=== PATIENT | male | born 1945 | race Caucasian/White ===

== ENCOUNTER → 2020-10-06 | Day surgery (SDC) | payer MEDICARE, OTHER ==
[~2020-10-06] MED LIST: ALLOPURINOL300 MG PO; COZAAR50 MG PO; FLOMAX 0.4 MG0.4 MG PO; HCTZ12.5 MG PO; LOPRESSOR50 MG PO; PROSCAR5 MG PO; VITAMIN D31250 MCG PO
[2020-10-06 08:05] LABS: HCT 49.2 % (42.0-52.0); HGB 17.6 g/dl (13.2-18.0); MCH 32.7 pg (25.0-31.0); MCHC 35.8 g/dL (32.0-36.0); MCV 91.3 fL (78.0-100.0); MPV 10.4 fL (6.0-9.5); RBC 5.39 M/uL (4.70-6.00); RDW 12.8 % (11.5-14.0); WBC 10.4 K/uL (4.0-10.5)
[2020-10-06 08:23] LABS: ALBUMIN 3.9 g/dL (3.4-5.0); BILIRUBIN - TOTAL 1.1 mg/dL (0.2-1.0); BUN/CREAT RATIO (CALC) 11.6 RATIO; CREATININE 0.86 mg/dL (0.67-1.17); POTASSIUM 3.5 mmol/L (3.5-5.1); TOTAL PROTEIN 7.9 g/dL (6.4-8.2)
== END | disposition home or self-care (01) ==
LOC: FAS 07:15
PROVIDERS: Surgery
DX: R19.7 Diarrhea, unspecified (principal); Z86.010 Personal history of colon polyps; Z87.891 Personal history of nicotine dependence; Z79.899 Other long term (current) drug therapy
CPT/HCPCS: 36415; 80053; 88305; J2250; J2704; J7120

== ENCOUNTER 2021-07-12 08:32 | Emergency (ER) | payer MEDICARE, OTHER ==
[2021-07-12 08:49] LABS: BASOPHIL 0.6 % (0-2); EOSINOPHIL 0.7 % (0-7); HCT 48.8 % (42.0-52.0); HGB 16.7 g/dl (13.2-18.0); LYMPHOCYTE 23.9 % (15-48); MCH 31.4 pg (25.0-31.0); MCHC 34.2 g/dL (32.0-36.0); MCV 91.7 fL (78.0-100.0); MONOCYTE 7.9 % (0-12); MPV 10.3 fL (6.0-9.5); NEUTROPHIL 66.5 % (41-80); NRBC 0; PLT 197 K/uL (150-400); RBC 5.32 M/uL (4.70-6.00); RDW 11.9 % (11.5-14.0); WBC 6.7 K/uL (4.0-10.5)
[2021-07-12 09:15] LABS: ALBUMIN 3.7 g/dL (3.4-5.0); BILIRUBIN - TOTAL 0.7 mg/dL (0.2-1.0); BUN/CREAT RATIO (CALC) 16.3 RATIO; CREATININE 0.92 mg/dL (0.67-1.17); GLOBULIN (CALCULATION) 3.6 g/dL; POTASSIUM 3.7 mmol/L (3.5-5.1); TOTAL PROTEIN 7.3 g/dL (6.4-8.2)
== END 2021-07-12 09:10 | disposition other institution (70) ==
LOC: FER 08:32
PROVIDERS: Internal Medicine
DX: I21.19 ST elevation (STEMI) myocardial infarction involving other coronary artery of inferior wall (principal); I10 Essential (primary) hypertension; Z20.822 Contact with and (suspected) exposure to COVID-19
CPT/HCPCS: 36415; 80053; 84484; 85025; 85730; 93005; J1644; U0002

== ENCOUNTER 2022-04-23 19:42 | Emergency (ER) | payer MEDICARE, OTHER | END 2022-04-23 20:23 | disposition home or self-care (01) | LOC: FER 19:42 | DX: S51.812A Laceration without foreign body of left forearm, initial encounter (principal); I10 Essential (primary) hypertension; I25.2 Old myocardial infarction; Z23 Encounter for immunization; W45.8XXA Other foreign body or object entering through skin, initial encounter; Y93.89 Activity, other specified | CPT/HCPCS: 90471; 90715 ==

== ENCOUNTER 2022-05-10 18:51 | Emergency (ER) | payer MEDICARE, OTHER | END 2022-05-10 22:15 | disposition left against medical advice (07) | LOC: FER 18:51 | DX: S81.811A Laceration without foreign body, right lower leg, initial encounter (principal); Z53.21 Procedure and treatment not carried out due to patient leaving prior to being seen by health care provider; W45.8XXA Other foreign body or object entering through skin, initial encounter ==